=== PATIENT | female | born 1980 | race Caucasian/White ===

== ENCOUNTER 2022-06-19 14:47 | Emergency (ER) | payer BC, SELFPAY ==
[2022-06-19 15:10] VITALS: BP 154/97; PULSE 63; RESP 14; TEMP 36.1; O2SAT 99
--- NOTE | 2022-06-19 15:57 | ED.EYEPROB ---
HPI - Eye Problem General Chief complaint: Eye Problems Stated complaint: Left Eye Irritation Time Seen by Provider: 06/19/22 15:57 Source: patient Mode of arrival: ambulatory Limitations: no limitations History of Present Illness HPI Narrative: 42-year-old female presented for complaint of left eye irritation intermittently over the past week. States she has irrigated the eye but itching and tearing will return. Endorses pain was worse today. She denies vision changes, photophobia, purulent drainage, or foreign body sensation. She denies known injury. chief complaint: eye pain Related Data Allergies Allergy/AdvReac Type Severity Reaction Status Date / Time No Known Allergies Allergy Verified 06/19/22 15:03 Review of Systems Review of Systems: CONSTITUTIONAL: Denies body aches, fever, chills EYES:Endorses redness and pain to left eye; denies FB sensation, photophobia, visual changes ENT: Reports rhinorrhea, congestion, denies sore throat, or otalgia. CARDIOVASCULAR: Denies chest pain, palpitations RESPIRATORY: Reports cough and wheezing denies dyspnea. GASTROINTESTINAL: Denies abdominal pain, nausea, vomiting, or diarrhea. SKIN: Denies rash, itching, or wounds. MUSCULOSKELETAL: Denies back pain, joint pain, or myalgia. NEUROLOGIC: Denies headache, numbness, tingling, or weakness. All systems reviewed & are unremarkable except as noted in HPI and below PMFSH Past Medical History Medical History (Updated 06/19/22 @ 16:17 by Latha Elaine APRN) Anxiety and depression Social History Social History (Updated 06/19/22 @ 16:09 by Latha Elaine APRN) Smoking packs per day: 1 Smoking cigarettes per day: 20.0 Smoking status: Current every day smoker Substance use: former Substance use type: IV drugs Comments At time of signature, I have reviewed and agree with nursing past medical, surgical, social and family history unless otherwise noted. Please see nursing chart for further information. There is no relevant family history pertinent to the presenting complaint Exam Narrative: GENERAL: Well-appearing HEAD: Normocephalic, atraumatic. EYES: Mild left conjunctival injection, no eye lid swelling/redness or stye, no purulent drainage. EOMI. PERRLA. Lid eversion shows no foreign body ENT: Mucous membranes pink and moist. No rhinorrhea. TMs normal bilaterally. Throat normal. Uvula midline. CHEST: Audible crackles, left lung wheezing HEART: Regular rate and rhythm. SKIN: Warm, dry, no rash. Normal skin turgor. Track zana scarring to BUEs. NEURO: Alert and oriented x3 PSYCH: flat affect. Course Course Emergency Course: Patient is aware of diagnosis, understands and agrees to treatment plan. Anticipatory guidance given. Patient agrees to follow-up as directed and is aware of reasons to seek care at the emergency department. Portions of this record may have been created with voice recognition software Level of Care: Express Care Visit Vital Signs Vital signs: Vital Signs Temperature 96.9 F L 06/19/22 15:10 Pulse Rate 63 06/19/22 15:10 Respiratory Rate 14 06/19/22 15:10 Blood Pressure 154/97 H 06/19/22 15:10 Pulse Oximetry 99 06/19/22 15:10 Temperature 96.9 F L 06/19/22 15:10 Pulse Rate 63 06/19/22 15:10 Respiratory Rate 14 06/19/22 15:10 Blood Pressure 154/97 H 06/19/22 15:10 Pulse Oximetry 99 06/19/22 15:10 Procedures FB Removal Eye Foreign Body #1: Foreign Body Removal Date: 06/19/22 Location: eye (L) Topical anesthetic used: tetracaine Evidence of corneal penetration: No Technique: eye wash bottle Procedure performed under: other (enriquez lamp) Patient tolerated procedure: well and no complications Foreign Body Removal Narrative: No foreign body or corneal abrasion noted. MDM - Eye Problem MDM Narrative Medical decision making narrative: Patient presented for c
== END 2022-06-19 16:27 | disposition home or self-care (01) ==
PROVIDERS: Emergency Provider Nurse Practitioner Family; PCP Family Medicine
DX: J40 Bronchitis, not specified as acute or chronic (principal); H57.12 Ocular pain, left eye; F17.210 Nicotine dependence, cigarettes, uncomplicated
CPT/HCPCS: 99213; A9270; G0463

== ENCOUNTER 2023-08-26 11:00 | Emergency (ER) | payer OTHER, SELFPAY ==
[2023-08-26 11:25] VITALS: BP 137/72; PULSE 92; RESP 20; TEMP 37.6; O2SAT 92
--- NOTE | 2023-08-26 12:12 | ED.URI ---
HPI - URI/Sore Throat General Chief Complaint: Upper Respiratory Infection Stated Complaint: Sinus/ Cough Time Seen by Provider: 08/26/23 12:12 Source: patient, RN notes reviewed and old records reviewed Mode of arrival: ambulatory Limitations: no limitations History of Present Illness HPI Narrative: patient presents with 2 day history of cough. She does report that she is a smoker, reports frequent bronchitis. She has been using albuterol with good relief. She says she does need a refill. She denies shortness of breath, does report some wheezing. She voices no other concerns or complaints. No fever, chills, sweats. Related Data Allergies Allergy/AdvReac Type Severity Reaction Status Date / Time No Known Allergies Allergy Verified 08/26/23 11:35 Review of Systems Review of Systems: All systems reviewed & are unremarkable except as noted in HPI and below Constitutional: Constitutional: Reports no additional constitutional complaints ENT: Reports system reviewed and no additional complaints, except as documented Cardiovascular: Cardiovascular: Reports no additional cardiovascular complaints Respiratory: Respiratory: Reports no additional respiratory complaints, Reports cough, Denies dyspnea and Reports wheezing Gastrointestinal: Gastrointestinal: Reports no additional gastrointestinal complaints [facility] Past Medical History Medical History Anxiety and depression Social History Social History Smoking packs per day: 1 Smoking cigarettes per day: 20.0 Smoking status: Current every day smoker Substance use: former Substance use type: IV drugs Comments At the time of my signature, I reviewed and agree with the nursing past medical, surgical, social, and family history. There is no relevant family history pertinent to the patient complaint. Exam Const: General: cooperative, no acute distress, alert and awake Orientation/consciousness: oriented to person, oriented to place and oriented to time HENMT: Head: normal to inspection Throat: posterior oropharynx normal Resp: Effort & Inspection: normal respiratory effort and able to speak in complete sentences Auscultation: clear to auscultation bilaterally, no crackles, no rales, no rhonchi and wheezes expiratory wheezes and scattered wheezes Cardio: Palpation: normal PMI Rate: regular rate Rhythm: regular rhythm Heart sounds: S1 normal heart sound present and S2 normal heart sound present Neuro: General: oriented to person, oriented to place and oriented to time Cranial nerves: Yes CN's II-XII intact bilaterally Psych: Appearance: grossly normal Thought process: Normal thought process present Insight: Good insight present (Psych) Judgement: Good judgement present (Psych) Course Course Level of Care: Express Care Visit Vital Signs Vital signs: Vital Signs Temperature 99.6 F 08/26/23 11:25 Pulse Rate 92 08/26/23 11:25 Respiratory Rate 08/26/23 11:25 Blood Pressure 137/72 08/26/23 11:25 Pulse Oximetry 92 08/26/23 11:25 Oxygen Delivery Room Air 08/26/23 11:25 Temperature 99.6 F 08/26/23 11:25 Pulse Rate 92 08/26/23 11:25 Respiratory Rate 08/26/23 11:25 Blood Pressure 137/72 08/26/23 11:25 Pulse Oximetry 92 08/26/23 11:25 Oxygen Delivery Room Air 08/26/23 11:25 Reviewed MDM - URI/Sore Throat MDM Narrative Medical decision making narrative: Negative COVID, patient is a smoker with mild expiratory wheezes. Short course of prednisone, refill albuterol. Emergency department for new or worsening symptoms. Follow up primary care provider. Blood pressure noted to be elevated at 130 7/78 Discharge instructions reviewed with patient, as well as provided in writing per nursing staff. The instructions also include specific and strict return/GO TO THE ER as well as f/u information. Al
== END 2023-08-26 12:31 | disposition home or self-care (01) ==
PROVIDERS: Emergency Provider Nurse Practitioner Family
DX: J40 Bronchitis, not specified as acute or chronic (principal); Z20.822 Contact with and (suspected) exposure to COVID-19; F17.210 Nicotine dependence, cigarettes, uncomplicated
CPT/HCPCS: 87081; 87426; 99213; G0463

== ENCOUNTER 2023-08-30 09:16 | Emergency (ER) | payer OTHER, SELFPAY ==
[2023-08-30 09:31] VITALS: O2SAT 94
[2023-08-30 09:33] VITALS: PULSE 74
[2023-08-30] MEDS: predniSONE 40 MG, predniSONE 10 MG 50 MG PO (09:35)
[2023-08-30 09:38] VITALS: PULSE 65; RESP 12; O2SAT 96
[2023-08-30] MEDS: IPRATROPIUM 0.5 MG/ALBUTEROL SULFATE 2.5 MG AMPUL.NEB 3 ML INHALATION (09:38)
[2023-08-30 09:40] VITALS: BP 127/74; PULSE 74; RESP 28; TEMP 36.7; O2SAT 94
[2023-08-30 09:44] VITALS: PULSE 75; RESP 12; O2SAT 100
--- NOTE | 2023-08-30 10:05 | ED.SOB ---
HPI - SOB/Dyspnea General Chief Complaint: Shortness of Breath/Dyspnea Stated Complaint: SOB Time Seen by Provider: 08/30/23 09:18 History of Present Illness HPI Narrative: Patient is a 43-year-old female who presents ER with shortness of breath. Ongoing over last 5 days. Diagnosed with bronchitis. She did not picking supervisor her prednisone that was prescribed. Still has wheezing. She has been using albuterol without significant improvement. No fevers or chills or sweats. Mild productive cough. Related Data Allergies Allergy/AdvReac Type Severity Reaction Status Date / Time No Known Allergies Allergy Verified 08/26/23 11:35 Review of Systems Constitutional: Constitutional: Reports no additional constitutional complaints ENT: Reports system reviewed and no additional complaints, except as documented Cardiovascular: Cardiovascular: Reports no additional cardiovascular complaints Respiratory: Respiratory: Reports cough, Reports dyspnea and Reports wheezing PMFSH Past Medical History Medical History Anxiety and depression Social History Social History Smoking packs per day: 1 Smoking cigarettes per day: 20.0 Smoking status: Current every day smoker Substance use: former Substance use type: IV drugs Exam Narrative: GENERAL: Well-appearing, well-nourished, and in no acute distress. HEAD: Normocephalic, atraumatic. ENT: Mucous membranes moist. Poor dentition CHEST: wheezing bilaterally. No respiratory distress. HEART: Regular rate and rhythm. Normal peripheral pulses. EXTREMITIES: Normal range of motion. No edema. SKIN: Warm, dry, no rash. NEURO: Alert and oriented x3. PSYCH: Normal mood and affect. Course Course Emergency Course: Recommend taking up prednisone prescription and starting tomorrow. First dose of prednisone given here. Wheezing improved with nebulizer. Vital Signs Vital signs: Vital Signs Pulse Oximetry 94 08/30/23 09:31 Oxygen Delivery Room Air 08/30/23 09:31 Temperature 98.0 F 08/30/23 09:40 Pulse Rate 75 08/30/23 09:44 Respiratory Rate 12 08/30/23 09:44 Blood Pressure 127/74 08/30/23 09:40 Pulse Oximetry 100 08/30/23 09:44 Oxygen Delivery Room Air 08/30/23 09:44 Fraction of Inspired Oxygen 08/30/23 09:44 Discharge Plan Discharge Clinical Impression: Bronchitis Patient Disposition: Home, Self-Care Condition: Stable Instructions: Acute Bronchitis (ED) Additional Instructions: Go to the pharmacy and picking supervisor the previously prescribed steroids. Return ER if he cannot breathe, he cannot keep down food/water/ medication, or you have additional concerns. Prescriptions: No Action albuterol sulfate 90 mcg/actuation HFA aerosol inhaler 2 inh inhalation QID PRN (Reason: shortness of breath or wheezing) Qty: 8.5 0RF prednisone 50 mg tablet 50 mg PO DAILY Qty: 5 0RF albuterol sulfate [Proventil HFA] 90 mcg/actuation HFA aerosol inhaler 2 puff inhalation QID PRN (Reason: shortness of breath or wheezing) Qty: 6.7 0RF Follow-up/Referrals: Elver Mcneil DO [Physician] - 1 Week PHYSICIAN,DIRECTOR OF QUALITY [Primary Care Provider] - Stand Alone Forms: Work/School Release IP
[2023-08-30 10:34] VITALS: BP 127/62; PULSE 73; RESP 24; TEMP 36.6; O2SAT 94
--- NOTE | 2023-08-30 10:38 | PC.NURSE ---
pt reports relief from resp treatment.
== END 2023-08-30 10:39 | disposition home or self-care (01) ==
PROVIDERS: Emergency Provider Emergency Medicine
DX: J40 Bronchitis, not specified as acute or chronic (principal); F17.210 Nicotine dependence, cigarettes, uncomplicated
CPT/HCPCS: 94640; 99284; J7512

== ENCOUNTER 2025-01-16 18:17 | Emergency (ER) | payer OTHER, MEDICAID, SELFPAY ==
--- NOTE | 2025-01-16 18:28 | ED.URI ---
HPI - URI/Sore Throat General Chief Complaint: Headache Stated Complaint: Bodyaches/Headache Time Seen by Provider: 01/16/25 18:29 Source: patient, RN notes reviewed and old records reviewed Mode of arrival: ambulatory Limitations: no limitations History of Present Illness HPI Narrative: 34-year-old female presents to the [facility] complaints of headache, body aches on Wednesday. Wednesday states that she had a low-grade fever and took either Tylenol or ibuprofen. States that she called in sick to work yesterday and today, requesting a work note for Wednesday yesterday and today. Onset (ago): day(s) (4) Treatments prior to arrival: acetaminophen and ibuprofen Related Data Allergies Allergy/AdvReac Type Severity Reaction Status Date / Time No Known Allergies Allergy Verified 01/16/25 18:40 Review of Systems Review of Systems: All systems reviewed & are unremarkable except as noted in HPI and below Constitutional: Constitutional: Reports as per HPI, Reports body ache(s), Reports fatigue and Reports headache(s) ENT: Reports system reviewed and no additional complaints, except as documented Cardiovascular: Cardiovascular: Reports no additional cardiovascular complaints, Denies chest pain and Denies dyspnea Respiratory: Respiratory: Reports no additional respiratory complaints, Denies chest congestion, Denies cough and Denies dyspnea Musculoskeletal: Musculoskeletal: Reports no additional musculoskeletal complaints Integumentary/Breasts: Skin/Breast: Reports system reviewed and no additional complaints, except as docu PMFSH Past Medical History Medical History Anxiety and depression Social History Social History Smoking packs per day: 1 Smoking cigarettes per day: 20.0 Smoking status: Current every day smoker Substance use: former Substance use type: IV drugs Comments At the time of my signature, I reviewed and agree with the nursing past medical, surgical, social, and family history. There is no relevant family history pertinent to the patient complaint. Exam Const: General: cooperative, healthy appearing, comfortable, no acute distress, well developed, alert and well nourished Nutritional Appearance: well nourished and obese Orientation/consciousness: patient oriented x3 Limitations: no limitations HENMT: Head: normal to inspection Ears: hearing grossly normal bilaterally, external ears normal, TM's normal bilaterally, EAC's normal, mastoids normal and no periauricular adenopathy Face/Nose/Sinus: Normal external nose present, Nasal discharge present clear bilateral and face symmetric Face and sinus: normal facial exam and face symmetric Mouth: Yes Normal oral and palatal mucosa present, Yes lip normal, Yes tongue normal and Yes moist mucous membranes Throat: posterior oropharynx normal, uvula midline and no uvular edema Eyes: General: appearance normal, both eyes and all related structures Alignment and Position: alignment normal Neck: Neck: normal visual inspection, full ROM, no lymphadenopathy and no meningeal signs Chest: Chest palpation & inspection: normal inspection of the chest Resp: Effort & Inspection: normal respiratory effort and able to speak in complete sentences Auscultation: clear to auscultation bilaterally, no crackles, no rales, no rhonchi and no wheezes Cardio: Rate: regular rate Skin: General skin exam: normal color and no rashes or lesions noted Neuro: General: patient oriented x3, gait normal, moves all extremities and no meningeal signs Cognition (Neuro): normal cognition Speech: normal speech Gait exam (Neuro): Normal gait present Extrem: General: normal to inspection, full ROM, capillary refill normal and normal gait Psych: Appearance: grossly normal and well kempt Mental Status: mental status grossly normal Speech and movement: Normal speech and movement present and Clear speech present Affect: normal affect Attitude: cooperative Course Course Level of Care: Express Care Visit Vital Signs Vital signs: Vital Signs Temperature 98.0 F 01/16/25 18:29 Pulse Rate 86 01/16/25 18:29 Respiratory Rate 16 01/16/25 18:29 Blood Pressure 141/99 H 01/16/25 18:29 Pulse Oximetry 98 01/16/25 18:29 Oxygen Delivery Room Air 01/16/25 18:29 Temperature 98.0 F 01/16/25 18:29 Pulse Rate 86 01/16/25 18:29 Respiratory Rate 16 01/16/25 18:29 Blood Pressure 141/99 H 01/16/25 18:29 Pulse Oximetry 98 01/16/25 18:29 Oxygen Delivery Room Air 01/16/25 18:29 reviewed MDM MDM Narrative Medical decision making narrative: patient sitting in exam room. Patient is nontoxic, vitals stable. Patient presents with headache and body ache for 4 days. Reports fevers on Wednesday. Flu COVID strep were all negative. clear rhinorrhea noted but no other acute findings patient requesting work note, explained we can give 1 for today and tomorrow but not prior. Discharge instructions reviewed with patient, as well as provided in writing per nursing staff. The instructions also include specific and strict return/GO TO THE ER as well as f/u information. All questions have been answered, and the patient deny any further questions with discharge and discharge plan. Some parts of this dictation were generated by voice recognition software and may contain typographical and/or grammatical inaccuracies. Differential Diagnosis Differential Diagnosis: Differential diagnostic considerations for upper respiratory infection include upper respiratory infection, croup, otitis media, sinusitis, viral infection, bronchitis, influenza, pharyngitis, strep, uvulitis.? Lab Data Labs: Lab Results 01/16/25 Range/Units 18:37 POC Influenza A Ag Negative (Negative) POC Influenza B Ag Negative (Negative) POC SARS CoV-2 Ag Negative (Negative) POC Grp A Strep Screen Negative (Negative) Reviewed Critical Care Time Critical Care Time Critical Care Time: No Discharge Plan Discharge Clinical Impression: Upper respiratory infection, viral Patient Disposition: Home Condition: Stable Instructions: Antibiotic Form, Upper Respiratory Infection (DC), Viral Syndrome (ED) Additional Instructions: Your rapid strep swab was negative today at [facility]. A throat culture will be sent to the laboratory for further testing. If the test is positive, you will receive a phone call within 48 hours and an appropriate antibiotic will be initiated at that time. Your rapid COVID test were negative Your rapid flu test was negative Your symptoms are likely due to a viral illness, which is not treated with antibiotics. Typically viral infections last 7-10 days, can linger for couple of weeks. It is very important to treat your symptoms. Drink plenty of water, Gatorade, Pedialyte, ice pops or Jell-O. -Alternate Tylenol and Motrin per package directions for fever or pain. You can alternate every 4 hours -Antihistamine medication such as Zyrtec/Claritin/Violet during the day can help improve symptoms. -doing daily nasal irrigations can help relieve pressure your sinuses. Things like a Neti pot -Use Flonase twice a day for 5 days then daily to help reduce the inflammation and dry up your sinuses. -You can also use Mucinex. Be sure to drink plenty of water with this medication at least 8 ounces with every dose and it is important to drink 8 to 10 glasses of water per day. Water is a natural decongestant -Eat and drink things that are easy to swallow, like tea or soup, or popsicles. -Oral rinses such as: Salt water gargles and/or may use topical anesthetic (eg. Chloraseptic spray) or lozenges to relieve dryness or throat pain). -Frequent hand washing or hand carry out clerk and shelf stocker is one of the best ways to prevent spread of infection. -Using a vaporizer or humidifier at night will also help thin secretions and help with coughing up phlegm. -Follow up with primary care provider in 7-10 days if condition is not improving - For new or worsening symptoms go directly to the nearest ER Patient Language: Serbian Prescriptions: No Action albuterol sulfate 90 mcg/actuation HFA aerosol inhaler 2 inh inhalation QID PRN (Reason: shortness of breath or wheezing) Qty: 8.5 0RF prednisone 50 mg tablet 50 mg PO DAILY Qty: 5 0RF albuterol sulfate [Proventil HFA] 90 mcg/actuation HFA aerosol inhaler 2 puff inhalation QID PRN (Reason: shortness of breath or wheezing) Qty: 6.7 0RF Follow-up/Referrals: PHYSICIAN,MOTOR CHECKER [Primary Care Provider, Internal Medicine] Stand Alone Forms: Work/School Release IP Time of Disposition: 18:55
[2025-01-16 18:29] VITALS: BP 141/99; PULSE 86; RESP 16; TEMP 36.7; O2SAT 98
[2025-01-16 18:47] LABS: EDSTREPNEGPOS1 Negative (Negative)
[2025-01-16 18:55] LABS: EDCOVIDSCREEN Negative (Negative); EDINFLUASCREEN Negative (Negative); EDINFLUBSCREEN Negative (Negative)
== END 2025-01-16 19:01 | disposition home or self-care (01) ==
PROVIDERS: Emergency Provider Nurse Practitioner
DX: J06.9 Acute upper respiratory infection, unspecified (principal); Z20.822 Contact with and (suspected) exposure to COVID-19; F17.210 Nicotine dependence, cigarettes, uncomplicated
CPT/HCPCS: 87081; 87426; 87804; 87880; 99213; G0463